=== PATIENT | female | born 1930 | race Caucasian/White ===

== ENCOUNTER 2016-04-19 12:04 | Inpatient (IN) | payer MEDICARE, BC ==
[~2016-04-19] VITALS: Ht 162.6 cm; Wt 62.9 kg
[2016-04-19] MEDS ORDERED: ACETAMINOPHEN 325 MG TAB PO PRN (12:20)
[2016-04-19] MEDS ORDERED: SALINE FLUSH 10 ML FLUSH PRN (12:20)
[2016-04-19] MEDS ORDERED: GADAVIST 10 ML SYR (HMH) IV ONE (12:41)
[2016-04-19] MEDS ORDERED: LEVOTHYROXINE 0.075 MG TAB PO SCH (14:05)
[2016-04-19] MEDS ORDERED: DULoxetine 30 MG CAP PO SCH (14:05)
[2016-04-19] MEDS: KCL CR 10 MEQ TAB PO SCH ×2 (14:06→21:00)
[2016-04-19] MEDS: MONTELUKAST 10 MG TAB PO SCH (14:06)
[2016-04-19 15:28] VITALS: BP_SYST 130; RESP 18; TEMP 97.8
[2016-04-19 15:30] VITALS: Ht 162.6 cm; Wt 62.9 kg
[2016-04-19] MEDS: PANTOPRAZOLE 40 MG VIAL IV SCH (16:36)
[2016-04-19] MEDS: Aspirin 325 MG TAB PO SCH (16:36)
[2016-04-19] MEDS: CLOPIDOGREL 75 MG TAB PO SCH (16:36)
[2016-04-19 17:31] VITALS: RESP 18
[2016-04-19 20:19] VITALS: BP_SYST 132; RESP 18
[2016-04-19] MEDS ORDERED: MISSING DOSE XX ONE (20:30)
[2016-04-19] MEDS ORDERED: GABAPENTIN 600 MG TAB PO SCH (21:00)
[2016-04-19] MEDS ORDERED: *PINK BRACELET XX ONE (21:00)
[2016-04-19] MEDS ORDERED: METOPROLOL XL 100 MG TAB PO SCH (21:00)
[2016-04-19] MEDS ORDERED: Atorvastatin 20 MG TAB PO SCH (21:00)
[2016-04-19] MEDS ORDERED: PRAVASTATIN 20 MG TAB PO SCH (22:04)
[2016-04-19] MEDS: KCL CR 10 MEQ CAP PO SCH (22:39)
[2016-04-19] MEDS: SALINE FLUSH 10 ML FLUSH SCH (22:39)
[2016-04-19] MEDS: GABAPENTIN 300 MG CAP PO SCH (22:40)
[2016-04-19] MEDS: METOPROLOL XL 100 MG TAB PO SCH (22:41)
[2016-04-20 00:02] VITALS: BP_SYST 128; RESP 18; TEMP 97.4
[2016-04-20] MEDS: SODIUM CHLORIDE 0.9% FLUSH BAG 500 ML IV SCH ×2 (02:58→21:51)
[2016-04-20 03:30] VITALS: BP_SYST 112; RESP 18; TEMP 97.4
[2016-04-20] MEDS ORDERED: NON-FORMULARY MEDICATION PO SCH (06:30)
[2016-04-20 07:36] VITALS: BP_SYST 128; RESP 16; TEMP 97.4
[2016-04-20] MEDS: *HOME MEDS KEPT IN PHARMACY XX SCH ×2 (08:00→20:00)
[2016-04-20] MEDS: *HOME MEDS IN MED CART XX SCH ×2 (08:00→20:00)
[2016-04-20] MEDS: CYMBALTA 60 MG PO SCH (08:32)
[2016-04-20] MEDS: SYNTHROID PO SCH (08:32)
[2016-04-20] MEDS: PANTOPRAZOLE 40 MG VIAL IV SCH (08:33)
[2016-04-20] MEDS: KCL CR 10 MEQ CAP PO SCH ×2 (08:34→21:02)
[2016-04-20] MEDS: MONTELUKAST 10 MG TAB PO SCH (08:35)
[2016-04-20] MEDS: SALINE FLUSH 10 ML FLUSH SCH ×2 (08:36→21:03)
[2016-04-20] MEDS: CLOPIDOGREL 75 MG TAB PO SCH (08:36)
[2016-04-20] MEDS: Aspirin 325 MG TAB PO SCH (08:36)
[2016-04-20 11:45] VITALS: BP_SYST 138; RESP 18; TEMP 97.6
[2016-04-20 15:32] VITALS: BP_SYST 126; RESP 16; TEMP 97.8
[2016-04-20] MEDS: METOPROLOL XL 100 MG TAB PO SCH (20:45)
[2016-04-20 20:46] VITALS: BP_SYST 160; RESP 16; TEMP 97.9
[2016-04-20] MEDS: PRAVASTATIN 20 MG TAB PO SCH (21:00)
[2016-04-20] MEDS: GABAPENTIN 300 MG CAP PO SCH (21:02)
[2016-04-20] MEDS: ALPRAZOLAM 0.25 MG TAB PO PRN (21:45)
[2016-04-21] VITALS (7 sets, daily range): BP systolic 140–178; RESP 16–18; TEMP 97.3–99.4
[2016-04-21] MEDS: SYNTHROID PO SCH (06:38)
[2016-04-21] MEDS: *HOME MEDS IN MED CART XX SCH ×2 (08:00→19:45)
[2016-04-21] MEDS: *HOME MEDS KEPT IN PHARMACY XX SCH ×2 (08:00→19:45)
[2016-04-21] MEDS ORDERED: MISSING DOSE XX ONE ×2 (11:00→11:30)
[2016-04-21] MEDS: Aspirin 325 MG TAB PO SCH (11:24)
[2016-04-21] MEDS: CLOPIDOGREL 75 MG TAB PO SCH (11:24)
[2016-04-21] MEDS: MONTELUKAST 10 MG TAB PO SCH (11:24)
[2016-04-21] MEDS: KCL CR 10 MEQ CAP PO SCH ×2 (11:25→20:16)
[2016-04-21] MEDS: PANTOPRAZOLE 40 MG VIAL IV SCH (11:25)
[2016-04-21] MEDS: CYMBALTA 60 MG PO SCH (11:25)
[2016-04-21] MEDS: SALINE FLUSH 10 ML FLUSH SCH ×2 (11:26→20:15)
[2016-04-21] MEDS: AMIODARONE 200 MG TAB PO SCH ×2 (15:05→20:15)
[2016-04-21] MEDS: APIXABAN 2.5 MG TAB PO SCH (20:15)
[2016-04-21] MEDS: PRAVASTATIN 20 MG TAB PO SCH (20:15)
[2016-04-21] MEDS: METOPROLOL XL 100 MG TAB PO SCH (20:16)
[2016-04-21] MEDS: GABAPENTIN 300 MG CAP PO SCH (20:17)
[2016-04-21] MEDS: SODIUM CHLORIDE 0.9% FLUSH BAG 500 ML IV SCH (20:29)
[2016-04-21] MEDS: ALPRAZOLAM 0.25 MG TAB PO PRN (20:29)
[2016-04-21] MEDS ORDERED: POLYETHYLENE GLYCOL 17 GM PACKET PO SCH (21:00)
[2016-04-22 03:55] VITALS: BP_SYST 130; RESP 18; TEMP 98
[2016-04-22] MEDS: PANTOPRAZOLE 40 MG TAB PO SCH (06:42)
[2016-04-22] MEDS: SYNTHROID PO SCH (06:43)
[2016-04-22 07:52] VITALS: BP_SYST 148; RESP 18; TEMP 98.2
[2016-04-22] MEDS: *HOME MEDS KEPT IN PHARMACY XX SCH ×2 (08:00→19:35)
[2016-04-22] MEDS: *HOME MEDS IN MED CART XX SCH ×2 (08:00→19:35)
[2016-04-22] MEDS: SALINE FLUSH 10 ML FLUSH SCH ×2 (08:19→20:12)
[2016-04-22] MEDS: KCL CR 10 MEQ CAP PO SCH ×2 (08:19→20:12)
[2016-04-22] MEDS: Aspirin 325 MG TAB PO SCH (08:20)
[2016-04-22] MEDS: CYMBALTA 60 MG PO SCH (08:20)
[2016-04-22] MEDS: MONTELUKAST 10 MG TAB PO SCH (08:20)
[2016-04-22] MEDS: APIXABAN 2.5 MG TAB PO SCH ×2 (08:20→20:11)
[2016-04-22] MEDS: AMIODARONE 200 MG TAB PO SCH ×2 (09:00→19:35)
[2016-04-22 11:26] VITALS: BP_SYST 156; RESP 18; TEMP 98
[2016-04-22 15:18] VITALS: BP_SYST 130; RESP 16; TEMP 97.6
[2016-04-22 19:00] VITALS: BP_SYST 128; RESP 18; TEMP 97.5
[2016-04-22] MEDS: PRAVASTATIN 20 MG TAB PO SCH (20:11)
[2016-04-22] MEDS: ALPRAZOLAM 0.25 MG TAB PO PRN (20:11)
[2016-04-22] MEDS: GABAPENTIN 300 MG CAP PO SCH (20:12)
[2016-04-22] MEDS ORDERED: METOPROLOL XL 50 MG TAB PO SCH (21:00)
[2016-04-22 23:20] VITALS: BP_SYST 139; RESP 18; TEMP 97.8
[2016-04-23 03:12] VITALS: BP_SYST 151; RESP 18; TEMP 97.8
[2016-04-23] MEDS: SODIUM CHLORIDE 0.9% FLUSH BAG 500 ML IV SCH (05:57)
[2016-04-23] MEDS: SYNTHROID PO SCH (06:48)
[2016-04-23] MEDS: PANTOPRAZOLE 40 MG TAB PO SCH (06:48)
[2016-04-23 07:15] VITALS: BP_SYST 152; RESP 16; TEMP 98.7
[2016-04-23] MEDS: *HOME MEDS KEPT IN PHARMACY XX SCH ×2 (08:00→20:00)
[2016-04-23] MEDS: *HOME MEDS IN MED CART XX SCH ×2 (08:00→20:00)
[2016-04-23] MEDS: MONTELUKAST 10 MG TAB PO SCH (08:28)
[2016-04-23] MEDS: APIXABAN 2.5 MG TAB PO SCH ×2 (08:28→21:26)
[2016-04-23] MEDS: Aspirin 325 MG TAB PO SCH (08:28)
[2016-04-23] MEDS: SALINE FLUSH 10 ML FLUSH SCH ×2 (08:29→21:26)
[2016-04-23] MEDS: KCL CR 10 MEQ CAP PO SCH ×2 (08:29→21:26)
[2016-04-23] MEDS: CYMBALTA 60 MG PO SCH (08:29)
[2016-04-23] MEDS: AMIODARONE 200 MG TAB PO SCH ×2 (08:41→21:26)
[2016-04-23] MEDS ORDERED: SOTALOL HCL 80 MG TAB PO ONE (09:20)
[2016-04-23] MEDS: METOPROLOL XL 25 MG TAB PO SCH ×2 (09:35→21:00)
[2016-04-23] MEDS ORDERED: AMIODARONE 200 MG TAB PO ONE (10:50)
[2016-04-23 11:06] VITALS: BP_SYST 159; RESP 16; TEMP 97.4
[2016-04-23 15:06] VITALS: BP_SYST 156; RESP 16; TEMP 97.5
[2016-04-23 19:56] VITALS: BP_SYST 150; RESP 16; TEMP 97.4
[2016-04-23] MEDS ORDERED: SODIUM CHLORIDE 0.9% 1,000 ML IV SCH (20:00)
[2016-04-23] MEDS ORDERED: METOPROLOL XL 50 MG TAB PO SCH (21:00)
[2016-04-23] MEDS ORDERED: SOTALOL HCL 80 MG TAB PO SCH (21:00)
[2016-04-23] MEDS: PRAVASTATIN 20 MG TAB PO SCH (21:25)
[2016-04-23] MEDS: GABAPENTIN 300 MG CAP PO SCH (21:26)
[2016-04-23] MEDS: ALPRAZOLAM 0.25 MG TAB PO PRN (21:30)
[2016-04-23 23:31] VITALS: BP_SYST 147; RESP 16; TEMP 97.5
[2016-04-24 03:48] VITALS: BP_SYST 148; RESP 16; TEMP 97.5
[2016-04-24] MEDS: SYNTHROID PO SCH (05:54)
[2016-04-24] MEDS: PANTOPRAZOLE 40 MG TAB PO SCH (05:54)
[2016-04-24] MEDS: SODIUM CHLORIDE 0.9% FLUSH BAG 500 ML IV SCH (05:54)
[2016-04-24] MEDS: *HOME MEDS IN MED CART XX SCH ×2 (08:00→20:00)
[2016-04-24] MEDS: *HOME MEDS KEPT IN PHARMACY XX SCH ×2 (08:00→20:00)
[2016-04-24] MEDS ORDERED: OPTIRAY 350 100 ML VIAL HMH IV ONE (08:05)
[2016-04-24 08:09] VITALS: BP_SYST 148; RESP 16; TEMP 97.5
[2016-04-24] MEDS: APIXABAN 2.5 MG TAB PO SCH ×2 (08:46→21:46)
[2016-04-24] MEDS: AMIODARONE 200 MG TAB PO SCH ×2 (08:46→21:45)
[2016-04-24] MEDS: Aspirin 325 MG TAB PO SCH (08:46)
[2016-04-24] MEDS: MONTELUKAST 10 MG TAB PO SCH (08:46)
[2016-04-24] MEDS: METOPROLOL XL 25 MG TAB PO SCH ×2 (08:46→21:49)
[2016-04-24] MEDS: KCL CR 10 MEQ CAP PO SCH ×2 (08:47→21:47)
[2016-04-24] MEDS: SALINE FLUSH 10 ML FLUSH SCH ×2 (08:49→21:36)
[2016-04-24] MEDS: CYMBALTA 60 MG PO SCH (08:50)
[2016-04-24 11:13] VITALS: BP_SYST 148; RESP 16; TEMP 98
[2016-04-24] MEDS ORDERED: SODIUM CHLORIDE 0.9% 1,000 ML IV SCH (13:50)
[2016-04-24 15:24] VITALS: BP_SYST 141; RESP 16; TEMP 97.5
[2016-04-24 20:00] VITALS: BP_SYST 154; RESP 18; TEMP 97.5
[2016-04-24] MEDS: ALPRAZOLAM 0.25 MG TAB PO PRN (21:45)
[2016-04-24] MEDS: GABAPENTIN 300 MG CAP PO SCH (21:47)
[2016-04-24] MEDS: PRAVASTATIN 20 MG TAB PO SCH (21:49)
[2016-04-25 00:03] VITALS: BP_SYST 149; RESP 18; TEMP 97.5
[2016-04-25 03:30] VITALS: BP_SYST 127; RESP 18; TEMP 97.8
[2016-04-25] MEDS: SODIUM CHLORIDE 0.9% FLUSH BAG 500 ML IV SCH (05:52)
[2016-04-25] MEDS: SYNTHROID PO SCH (06:29)
[2016-04-25] MEDS: PANTOPRAZOLE 40 MG TAB PO SCH (06:29)
[2016-04-25 07:37] VITALS: BP_SYST 153; RESP 18; TEMP 97.6
[2016-04-25] MEDS: *HOME MEDS KEPT IN PHARMACY XX SCH ×2 (08:00→14:34)
[2016-04-25] MEDS: *HOME MEDS IN MED CART XX SCH (08:00)
[2016-04-25] MEDS: AMIODARONE 200 MG TAB PO SCH (08:15)
[2016-04-25] MEDS: APIXABAN 2.5 MG TAB PO SCH (08:15)
[2016-04-25] MEDS: MONTELUKAST 10 MG TAB PO SCH (08:15)
[2016-04-25] MEDS: SALINE FLUSH 10 ML FLUSH SCH (08:16)
[2016-04-25] MEDS: CYMBALTA 60 MG PO SCH (08:16)
[2016-04-25] MEDS: Aspirin 325 MG TAB PO SCH (08:16)
[2016-04-25] MEDS: KCL CR 10 MEQ CAP PO SCH (08:16)
[2016-04-25] MEDS: METOPROLOL XL 25 MG TAB PO SCH (08:30)
[2016-04-25 11:48] VITALS: BP_SYST 118; RESP 18; TEMP 97.8
[2016-04-25 14:07] VITALS: BP_SYST 118; RESP 18; TEMP 97.8
== END 2016-04-25 14:44 | disposition home or self-care (01) | DRG 65 ==
LOC: ENRESERVDT → ENRESERVTM → PCU2 12:40 → UNDOADMOB 12:40 → PCU2 15:28 → OBSVTOIN 04-20 18:53 → ENPENDDIS 04-20 18:53
PROVIDERS: ADMIT Internal Medicine; ATTEND Internal Medicine
DX: I63.59 Cerebral infarction due to unspecified occlusion or stenosis of other cerebral artery (principal); G81.94 Hemiplegia, unspecified affecting left nondominant side; I48.0 Paroxysmal atrial fibrillation; I47.1 Supraventricular tachycardia; R29.810 Facial weakness; E78.5 Hyperlipidemia, unspecified; I10 Essential (primary) hypertension; E03.9 Hypothyroidism, unspecified; K21.9 Gastro-esophageal reflux disease without esophagitis; Z87.891 Personal history of nicotine dependence; M81.0 Age-related osteoporosis without current pathological fracture; I08.0 Rheumatic disorders of both mitral and aortic valves; J44.9 Chronic obstructive pulmonary disease, unspecified; Z98.1 Arthrodesis status
CPT/HCPCS: 36600; 70496; 70498; 70544; 70548; 70553; 71020; 80048; 80053; 80061; 82607; 82746; 82803; 83036; 83690; 83735; 83880; 84439; 84443; 84484; 85025; 85610; 85652; 93005; 93306; 93880; 94799